=== PATIENT | male | born 1950 ===

== ENCOUNTER 2020-01-16 20:02 | Inpatient (IN) | payer MEDICARE ==
--- NOTE | 2020-01-17 00:10 | NUR ---
PT ADMIT TO UNIT FROM [facility]. HE HAS A HX OF SCHIZOPHRENIA AND HASNT BEEN TAKING HIS MEDICATIONS PRESCRIBED. SISTER, EVELYN LUX, WHO CONSENTS TO TREATMENT. HE HAS BEEN ENCOURAGED BY THE POLICE TO PURSUE PSYCHIATRIC HELP AFTER BEING FOUND WANDERING IN AND OUT OF OTHER PEOPLE'S YARD. HE IS A&OX4. HE IS COOPERATIVE WITH STAFF. HE WEIGHS 238.2 LBS. HE IS ABLE TO AMBULATE ON HIS OWN WITHOUT ASSIST. HE RELATES THAT HE WOULD LIKE TO GET HIS MEDICATIONS BACK ON TRACK. IS COOPERATIVE WITH STAFF. HE WEIGHS 238.2 LBS. HE RELATES THAT HE WOULD LIKE TO GET HIS MEDICATIONS BACK ON TRACK AND THAT HE ALSO IS HAVING AUDITORY HALLUCINATIONS. HE RELATES THAT HE IS VERY NERVOUS ABOUT NOT TAKING HIS ZYPREXA. ADMINISTERED PRN ATIVAN 0.5MG PO. WILL CONTINUE TO MONITOR.
[2020-01-17 00:32] LABS: BILIRUBIN NEGATIVE (NEGATIVE); GLUCOSE NEGATIVE (NEGATIVE); KETONE NEGATIVE (NEGATIVE); NITRITE NEGATIVE (NEGATIVE); UROBILINOGEN NORMAL (NORMAL)
[2020-01-17] MEDS ORDERED: ASCORBIC ACID500 MG PO (00:40)
[2020-01-17] MEDS ORDERED: ZYPREXA20 MG PO (00:40)
[2020-01-17] MEDS ORDERED: MAGNESIUM OXID420 MG PO (00:40)
[2020-01-17] MEDS ORDERED: COZAAR100 MG PO (00:41)
[2020-01-17] MEDS ORDERED: KENALOG 0.025%15 G2 (00:42)
[2020-01-17] MEDS ORDERED: BUSPAR5 MG (00:42)
[2020-01-17] MEDS ORDERED: AUGMENTIN 875-11 TAB (00:42)
[2020-01-17 02:33] VITALS: BP 158/101; BMI 31.4
[2020-01-17 06:10] LABS: BASOPHILS 0.4 % (0-2); HEMATOCRIT 44.9 % (42.0-54.0); HEMOGLOBIN 15.2 g/dL (13.5-17.5); IMMATURE GRANULOCYTES 0.1 % (0-5); LYMPHOCYTES 40.5 % (15-50); MCH 29.9 pg (26.0-34.0); MCHC 33.9 g/dL (31.0-37.0); MCV 88.2 fL (80.0-100.0); MONOCYTES 10.8 % (2-11); NEUTROPHILS 43.2 % (40-80); PLATELET COUNT 210 10x3/uL (130-400); RBC 5.09 10x6/uL (4.20-6.10); RDW 13.2 % (11.5-14.5); WBC 6.8 10x3/uL (4.8-10.8)
[2020-01-17 07:13] LABS: ALBUMIN 3.6 g/dL (3.4-5.0); ALKALINE PHOSPHATASE 71 U/L (30-120); ALT (SGPT) 91 U/L (10-68); BILIRUBIN - TOTAL 0.65 mg/dL (0.2-1.3); CALC OSMOLALITY 273 mosm/kg (275-300); CALCIUM 8.6 mg/dL (8.5-10.1); CARBON DIOXIDE 25.3 mmol/L (21.0-32.0); CHLORIDE - SERUM 102 mmol/L (98-107); CREATININE - SERUM 0.8 mg/dL (0.6-1.3); GLUCOSE 103 mg/dL (74-106); POTASSIUM - SERUM 3.6 mmol/L (3.5-5.1); PROTEIN - SERUM 7.5 g/dL (6.4-8.2); SODIUM 137 mmol/L (136-145); THYROID STIMULATING HORMONE 5.23 uIU/mL (0.36-3.74); UREA NITROGEN 13 mg/dL (7-18); eGFR NON AFRICAN AMERICAN > 90 mL/min (90-120)
--- NOTE | 2020-01-17 07:55 | NUR ---
The patient is calm and pleasant he has asked for a comb, toothbrush and toothpaste. He is in his room until his SARS test is read. He is ambulatory, he has not made any mention of hearing voices this am, will monitor. He has asked when what time breakfast is and when will he get medications. Provide prescribed meds as ordered. Encourage the patient to take medications. Continue POC.
[2020-01-17 09:07] VITALS: BP 146/109
[2020-01-17 11:01] VITALS: Wt 105.5 kg
--- NOTE | 2020-01-17 19:30 | NUR ---
RECEIVED IN DINING ROOM, PACING AND SOCIALIZING WITH PEERS. HE HAS NOT MADE MENTION OF HEARING VOICES TONIGHT. AWAKE, ALERT AND ORIENTED TO PERSON, PLACE AND SITUATION. ADMINISTERED PRESCRIBED MEDICATIONS, MONITOR FOR SAFETY AND NEEDS. COMPLIANT WITH MEDICATIONS. CALM AND COOPERATIVE WITH STAFF. CONTINUE POC.
[2020-01-17 21:05] VITALS: BP 133/92
--- NOTE | 2020-01-18 02:10 | NUR ---
PATIENT REQUESTED A PILL TO HELP HIM SLEEP. ATIVAN 0.5 MG PO GIVEN.
[2020-01-18 06:10] LABS: RAPID PLASMA REAGIN Non Reactive (Non Reactive)
--- NOTE | 2020-01-18 08:15 | NUR ---
PT GUARDIAN ASHUTOSH CALLED AND WANTED TO KNOW HOW HE IS DOING. WHAT THE PLAN WAS FOR HIM LEAVING. SHE WANTED TO KNOW IF HE STILL HAD THE MONEY THAT SHE SENT SO HER COULD GET A TAXI CAB WHEN HE DISCHARGED. NURSE EXPLAINED THAT HE WAS GOING TO BE FOR THE WEEKEND AND THAT WHEN IT WAS TIME FOR D/C SHE WOULD BE NOTIFIED FOR THE D/C. IF HE NEEDED A CAB IT WOULD BE ARRANGED.
[2020-01-18 13:22] VITALS: BP 133/92
[2020-01-18 14:20] VITALS: BP 141/90
--- NOTE | 2020-01-18 18:05 | NUR ---
PT PACING IN HALLWAY THIS SHIFT. PT WALKS TOUCHES THE GLASS, WALKED TO THE DOOR AND TOUCHES IT. PT CONTS THAT PATTERN FOR A LENGTH OF TIME. PT IS COOPERATIVE, CALM AND COMPLIANT WITH MEDS. REDIRECT BEHAVIOR WHEN NEEDED. PT IS HAVING AUDITORY HALLUCINATION AT TIMES. REORIENT NEEDED. WILL CONT PLAN OF CARE.
--- NOTE | 2020-01-18 18:12 | NUR ---
PT ASKED IF WE DID SHOCK THERAPY HERE OR NOT. NURSE EXPLAINED THAT WE DO NOT OFFER THAT TREATMENT HERE. HE BEGAN TO TELL HIS EXPERIENCE WITH [facility].
--- NOTE | 2020-01-18 19:57 | HP ---
PATIENT: KACEY AZEVEDO MEDICAL RECORD: [id number] ACCOUNT: [id number] LOCATION:[facility] : 48 ADMISSION DATE: 01/16/20 PCP: FRANSISCA Adames HISTORY AND PHYSICAL EXAMINATION IDENTIFYING DATA: The patient is a 69-year-old male who appears about his stated age and is admitted to the hospital on a voluntary basis referred from [facility] Emergency Department. CHIEF COMPLAINT: Paranoia. HISTORY OF PRESENT ILLNESS: The patient stated that he had not been taking his meds for the last couple of weeks because he is concerned that many people that he has seen caught of heart failure when taking these meds and that several have just fallen over in the apartment. He has also seen at the [facility] a patient just fell over in front of him, so he has not been taking his meds. The patient states that he has a history of schizophrenia and recently was having problems at the apartment complex and that he was doing things that they did not like and so they called his sister to check on him, who is his POA, who lives in [place] and she came and brought him into the Emergency Department for an evaluation. She reported that the patient had been wandering outside at all hours on to a neighbor's property uninvited and has had the police called on him. She states that he has a history of schizophrenia. Reports that the pictures in the cell phone told me to stop taking my medications. The patient presented with rambling speech. Denied that he was being told to hurt himself or anyone else. This was his second visit to the Emergency Department for abnormal thoughts and auditory hallucinations. It was reported that he wants to stop taking his antipsychotic medications. The onset was gradual. Associated symptoms include irritability and poor judgment. PAST MEDICAL HISTORY: Hypertension. PAST SURGICAL HISTORY: He had surgery to his hand and finger. PAST PSYCHIATRIC HISTORY: The patient reports that he has been in [facility] at least 3-4 times. He has been at [facility] at least twice. He has also had care at [facility]. He reports that his diagnosis has been paranoid schizophrenia. The patient reports that he was taking the Prolixin shot for greater than 30 years and feels he has been on Zyprexa, but before at least 18 years. The patient reports that he has had multiple events where he has been in a facility and eloped and would take a car and return back to [place]. The patient reports that he was never charged with anything as his family would return the vehicles. REVIEW OF SYSTEMS: The patient is a poor historian. Denies anything. Trauma, the patient denies any history of physical, emotional, or sexual trauma. ALLERGIES: The patient has no known allergies. MEDICATIONS: Current medications include magnesium oxide 400 mg, olanzapine 20 mg daily, buspirone 5 mg t.i.d., and losartan 100 mg daily. SOCIAL HISTORY: The patient is single. His sister who resides in [place] is his POA. He states he has never been , did date a girl in high school. He has no children. 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 The patient states he did graduate high school. The patient denies any history of drug or alcohol abuse or smoking. His strengths are his ability to communicate his needs and his weakness is his poor psychosocial support and his history of serious mental illness. DIAGNOSES: AXIS I: Schizophrenia, anxiety. Differential diagnosis: Dementia. AXIS II: None. AXIS III: Hypertension. AXIS IV: Moderate. AXIS V: Global assessment of functioning is 30. PLAN: At this time, the plan is to be admitted to the behavioral health unit secondary to bizarre behavior associated with severe schizophrenia. He will have a comprehensive evaluation for mood, thought, and cognition. He will be treated with both mood and thought stabilizing medications and potentially memory enhancing medications. His long-term prognosis is guarded. The patient did agree to start taking Zyprexa again at a low dose of 5 mg p.o. daily. Dictated By: Twila Junior APN I have interviewed/examined the above patient and agree with these documented findings. TRANSINT:[id number] Voice Confirmation ID: [id number] DOCUMENT ID: [id number] Dictated By: TWILA JUNIOR I have interviewed/examined the above patient and agree with these documented findings. MIRIAM JOHNSON MD at 1957 at 0919 CC: [id number] DICTATION DATE: 01/17/20 1645 LINING FELLER BLINDSTITCH: 01/17/202221 ADM IN [facility] [address] [facility]901
--- NOTE | 2020-01-18 23:20 | NUR ---
RECEIVED PATIENT IN DINING AREA TALKING WITH TWO OTHER RESIDENTS, HE IS BIZARRE AND A LITTLE GUARDED. HE IS COMPLIANT WITH MEDS. HE CAN MAKE ALL NEEDS KNOWN. WILL FOLLOW POC
[2020-01-19 08:53] VITALS: BP 169/92
--- NOTE | 2020-01-19 15:01 | NUR ---
Pt sitting at dining room table with peers. Calm and cooperative with assessment. Prescribed meds provided as ordered. Med compliant. Pt is guarded at this time. No other behaviors noted at this time. Will cpoc.
--- NOTE | 2020-01-19 22:20 | NUR ---
B) Patient is alert and oriented to person, place and time, calm and cooperative I) Administered scheduled medications as ordered, monitored for safety R) Mediation compliant, follows unit miliue P) Continue plan of care.
[2020-01-20 09:08] VITALS: BP 142/90
--- NOTE | 2020-01-20 17:08 | NUR ---
PT IS STTING AT DINING ROOM TABLE WITH PEERS SOCIALIZING. ASSESSMENT COMPLETED. PRESCRIBED MEDS PROVIDED. MED COMPLIANT. WILL CPOC.
--- NOTE | 2020-01-20 19:31 | NUR ---
RECEIVED IN DINING ROOM AREA. SITTING IN A CHAIR WITH PEERS AT HIS SIDE. CALM AND COOPERATIVE WITH CARE AND ASSESSMENT. ENCOURAGE TO EXPRESS NEEDS. REDIRECT AND REOREINT NEEDED. CONTINUES TO SIT CALMLY IN DAYROOM. CONTINUE PLAN OF CARE.
[2020-01-20 20:10] VITALS: BP 155/84
--- NOTE | 2020-01-21 08:22 | PN ---
PATIENT:KACEY AZEVEDO MEDICAL RECORD: [id number] LOCATION:[facility]112 ADMISSION DATE: 01/16/20 PROGRESS NOTE DATE OF SERVICE: 01/20/2020 SUBJECTIVE: The patient's case was discussed with staff. He has no new complaint. OBJECTIVE: The patient denies intent to harm himself or others. He tolerates his medicines well. ASSESSMENT: Schizophrenia. PLAN: Current medicines have been reviewed and will be maintained. His long-term prognosis is guarded. He is tolerating his current medications well. TRANSINT:[id number] Voice Confirmation ID: [id number] DOCUMENT ID: [id number] MIRIAM JOHNSON MD at 0822 CC: [id number] DICTATION DATE: 01/20/20 173 BUTTON BUTTONHOLE MARKER: 01/21/20 0133 ADM IN [facility] [address] [place] [address]
[2020-01-21 10:05] VITALS: BP 136/92
--- NOTE | 2020-01-21 11:18 | NUR ---
Nutrition Follow-up: Diet: Regular PO intake: ~93% average x last 9 meals Last BM: 01/18/20. Wt: 238.2# (01/17/20) Meds reviewed. No new labs. Recommend continue current diet. RD following.
--- NOTE | 2020-01-21 15:43 | NUR ---
PT SITTING IN CHAIR AT THIS TIME. PT STATED TO NURSE IF HE COULD HAVE SOME CINNAMON WITH HIS ZYPREXA IT STOPS FROM HIM FROM GETTING SUGAR DIABETES. NURSE ASKED HIM WHAT HE MEANT?" HE STATED THAT HE WANTED IT TO NOT GET SUGAR." NURSE TOLD PT SHE COULD TALK TO THE DOCTOR. PT IS ORIENT TO PERSON, PLACE AND TIME. PT IS CONFUSED ABOUT SITUATION. PT IS CALM AND COOPERATIVE WITH STAFF. PT IS COMPLIANT WITH MEDS, VITALS AND ASSESSMENTS. PT CAN MAKE NEEDS KNOWN. AMBULATES. WILL CONT PLAN OF CARE.
--- NOTE | 2020-01-21 19:41 | NUR ---
RECEIVED IN DAYROOM. SITTING IN A CHAIR WITH PEERS AT HIS SIDE. CALM AND COOPERATIVE WITH CARE AND ASSESSMENT. ENCOURAGE TO EXPRESS NEEDS. REDIRECT AND REORIENT NEEDED. CONTINUES TO SIT CALMLY IN DAYROOM. CONTINUE PLAN OF CARE.
[2020-01-21 19:52] VITALS: BP 172/97
[2020-01-22 08:36] VITALS: BP 152/99
--- NOTE | 2020-01-22 09:07 | PN ---
PATIENT:KACEY AZEVEDO MEDICAL RECORD: [id number] LOCATION:[facility] ADMISSION DATE: 01/16/20 PROGRESS NOTE DATE OF SERVICE: 01/21/2020 SUBJECTIVE: The patient's case was discussed with staff. He has no new complaint. OBJECTIVE: The patient is in good behavioral control. He has poor insight about his situation. ASSESSMENT: Schizophrenia. PLAN: The patient has not been aggressive today. He has made some statements that are delusional, but I think his condition has improved now that he is back on his medications. TRANSINT:[id number] Voice Confirmation ID: [id number] DOCUMENT ID: [id number] MIRIAM JOHNSON MD at 0907 CC: [id number] DICTATION DATE: 01/21/20 1615 SR. PRICING ANALYST: 01/22/20 0111 ADM IN [facility] [address] [place] [address]
--- NOTE | 2020-01-22 12:26 | NUR ---
SW AUDITED THE CHART AND BIO WAS NOT THERE. BIO WAS COMPLETED ON 01/17. SW REENTERED ASSESSMENT.
--- NOTE | 2020-01-22 14:42 | NUR ---
Nutrition Follow-up: Diet: Regular PO intake: ~93% average x last 9 meals Last BM: 01/21/20- per notes. Wt: 238.2# (01/17/20) Meds and labs reviewed Recommend continue current diet. RD following.
[2020-01-22 20:27] VITALS: BP 189/89
--- NOTE | 2020-01-22 20:34 | NUR ---
RECEIVED PATIENT IN DINING ROOM, SITTING TO HIMSELF, HE IS ALERT AND ORIENTED TO PERSON, PLACE, TIME AND SITUATION. COMPLIANT WITH MEDS. ABLE TO STATE ALL OF HIS NEEDS AND CONCERNS. WILL FOLLOW POC
[2020-01-23 11:19] VITALS: BP 145/91
--- NOTE | 2020-01-23 13:19 | PN ---
PATIENT:KACEY AZEVEDO MEDICAL RECORD: [id number] LOCATION:[facility]112 ADMISSION DATE: 01/16/20 PROGRESS NOTE DATE OF SERVICE: 01/22/2020 SUBJECTIVE: The patient's case was discussed with staff. He has no new complaint. OBJECTIVE: The patient denies intent to harm himself or others. He has clear evidence of cognitive impairment. He says he does not want to take his medicine because he read the instructions and they told him about the dangers. When he says instructions, I am sure he is talking about the package insert. I have talked to him about the relative risk and benefit of any kind of medicine. I talked to him fairly extensively about this, but I do not believe he really is accepting my explanation. ASSESSMENT: 1. Schizophrenia. 2. Dementia. PLAN: The patient is only taking half of his medication for psychotic symptoms he was taking as an outpatient. I was wanting to speak with him about increasing that dose today but given the above circumstances, I did not. Also, he was asking me to drop the dose by 75% and again, I told him I did not think that was a good idea. NTS:[id number] Voice Confirmation ID: [id number] DOCUMENT ID: [id number] MIRIAM JOHNSON MD at 1319 CC: [id number] DICTATION DATE: 01/22/20 1640 MERGERS AND ACQUISITIONS CONSULTANT: 01/22/20 2343 ADM IN [facility] [address] [place] [address]
--- NOTE | 2020-01-23 17:18 | NUR ---
ORIENTED TO SELF WITH CONFUSION.COMPLIANT WITH STAFF AND MEDS.VISITS WITH PEERS.WILL CONTINUE WITH CURRENT PLAN OF CARE,MONITOR FOR CHANGES AND SAFETY.
[2020-01-23 20:09] VITALS: BP 167/96
--- NOTE | 2020-01-24 06:50 | NUR ---
RESTED QUIETLY THROUGH THE NIGHT, NO PRN'S REQUIRED, COMPLIANT WITH MEDS.
--- NOTE | 2020-01-24 10:46 | NUR ---
The patient is pleasant and calm, he ambulates independently. He has not shown any aggression today. He has not shown any hallucinations. Provide prescribed meds. The patient is compliant with meds. Continue POC.
--- NOTE | 2020-01-24 12:57 | PN ---
PATIENT:KACEY AZEVEDO MEDICAL RECORD: [id number] LOCATION:[facility] ADMISSION DATE: 01/16/20 PROGRESS NOTE DATE OF SERVICE: 01/23/2020 SUBJECTIVE: The patient's case was discussed with staff. He has no new complaint. OBJECTIVE: The patient denies intent to harm himself or others. He is tolerating his medicines well. ASSESSMENT: 1. Schizophrenia. 2. Mild dementia. PLAN: Supportive and educational interventions were made. The patient will be maintained on current medicines. TRANSINT:[id number] Voice Confirmation ID: [id number] DOCUMENT ID: [id number] MIRIAM JOHNSON MD at 1257 CC: [id number] DICTATION DATE: 01/23/201705 AUTOMOTIVE PAINT TECHNICIAN: 01/24/20 0216 ADM IN [place] [id number] [place] [address]
[2020-01-24 16:17] VITALS: BP 148/92
--- NOTE | 2020-01-24 17:46 | NUR ---
The patient is plugging up his ears and he keeps saying it is too loud today. Unsure if he is attending to his voices or if he is getting upset because it is loud with patient's talking and TV blaring. Will monitor his behavior.
[2020-01-24 19:57] VITALS: BP 162/94
--- NOTE | 2020-01-24 21:25 | NUR ---
B.) PT IS ALERT AND ORIENTED X4. HE IS CALM AND COOPERATIVE. HE IS ABLE TO AMBULATE ON HIS OWN. HE IS ATTENDING TO AUDITORY HALLUCINATIONS. HE RELATES THAT THERE ARE SUBLIMINAL MESSAGES IN THE COMMERCIALS ON THE TV. HE IS OBSERVED COVERING HIS EARS. I.) PROVIDED PM MEDICATION PRESCRIBED. R.) COMPLIANT WITH HS MEDICATION. P.) WILL CONTINUE TO MONITOR.
[2020-01-25 10:10] VITALS: BP 149/96
--- NOTE | 2020-01-25 12:52 | NUR ---
The patient is awake, he is pleasant and calm. He continues to hear voices he says they are subliminal messages he hears from the commercials that tell him to buy things. He ambulates independently. Provide prescribed meds. The patient is compliant with meds and he spoke to Twila Junior APN about his medications today. Continue POC.
[2020-01-25 20:00] VITALS: BP 159/87
--- NOTE | 2020-01-25 21:58 | NUR ---
B.) PT IS ALERT AND ORIENTED X4. HE RELATES THAT HE IS CONCERNED THAT HE TAKES 5 MG OF AMLODIPINE AND HE HAS ONLY BEEN GETTING 2.5 HERE. HE SAYS HE THINKS HE WOULD BETTER CONTROL HIS BLOOD PRESSURE WITH THE 5 MG. HE IS ABLE TO AMBULATE ON HIS OWN WITHOUT ASSIST. I.) PROVIDED PM MEDICATIONS PRESCRIBED. REDIRECT NEEDED. R.) COMPLIANT WITH ALL MEDICATIONS. EASY TO REDIRECT. P.) WILL CONTINUE TO MONITOR.
[2020-01-26 09:09] VITALS: BP 138/93
--- NOTE | 2020-01-26 11:01 | NUR ---
RECEIVED IN HALLWAY OUTSIDE OF NURSES STATION. CALM AND COOPERATIVE WITH CARE AND ASSESSMENT. COMPLIANT WITH MORNING MEDICATIONS. ISOLATES HIMSELF FROM OTHERS AND DOESN'T SOCIALIZE. REDIRECT AND REORIENT NEEDED. SITTING IN GROUP AT THIS TIME. CONTINUE PLAN OF CARE.
--- NOTE | 2020-01-26 19:49 | NUR ---
RECEIVED IN HALLWAY OUTSIDE OF DINING AREA. PACING, CALM AND COOPERATIVE WITH CARE AND ASSESSMENT. ENCOURAGE TO EXPRESS NEEDS. REDIRECT AND REORIENT NEEDED. CONTINUES TO SPACE IN HALLWAY. CONTINUE PLAN OF CARE.
[2020-01-26 20:00] VITALS: BP 151/85
[2020-01-27 08:55] VITALS: BP 122/82
--- NOTE | 2020-01-27 12:00 | NUR ---
RECEIVED IN HALLWAY OUTSIDE OF NURSES STATION. CALM AND COOPERATIVE WITH CARE AND ASSESSMENT. ISOLATES SELF FROM OTHERS. COMPLIANT WITH MEDICATIONS. REDIRECT AND REORIENT NEEDED. EATING AT THIS TIME. CONTINUE PLAN OF CARE.
[2020-01-27] MEDS ORDERED: DESERYL PO (15:26)
[2020-01-27] MEDS ORDERED: NORVASC2.5 MG PO (15:26)
[2020-01-27] MEDS ORDERED: ZYPREXA5 MG PO (15:26)
--- NOTE | 2020-01-27 19:34 | NUR ---
RECEIVED IN DAYROOM. SITTING IN A CHAIR WITH PEERS AT HIS SIDE. CALM AND COOPERATIVE WITH CARE AND ASSESSMENT. ENCOURAGE TO EXPRESS NEEDS. CONTINUES TO SIT CALMLY IN DAYROOM. CONTINUE PLAN OF CARE.
[2020-01-27 20:06] VITALS: BP 156/89
[2020-01-27 20:12] VITALS: BP 156/89
[2020-01-28 09:32] VITALS: BP 151/90
--- NOTE | 2020-01-28 09:50 | PN ---
PATIENT:KACEY AZEVEDO MEDICAL RECORD: [id number] LOCATION:[facility] ADMISSION DATE: 01/16/20 PROGRESS NOTE DATE OF SERVICE: 01/27/2020 SUBJECTIVE: The patient's case was discussed with staff. He has no new complaint. OBJECTIVE: The patient denies that he would seek to harm himself or others. He has no active psychotic symptoms and no medication side effects. He is aware of the COVID infection and is very much afraid he is going to get it. That is probably on some level not unreasonable, but he had the delusion when he came in, that his psych meds might cause that. After I explained that that was not the case, he was concerned that they might cause all sorts of problems. Apparently, he had gotten hold of the package insert, which is of course fine and he is entitled to have, but he was not able to fully appreciate that all medications have relative risk and benefit. ASSESSMENT: Schizophrenia. PLAN: The patient is not psychotic. He has no evidence of dangerousness. He is fine to go home tomorrow. I do think that the sister is thinking along the right lines of looking for a long-term placement for him after she is no longer with us or can no longer assist him. She is about 8 years older than he is. She is going to help him look for an assisted living center and in the interim, he is going to go to day treatment at the [facility]. I think this is a good plan. The outcome will be largely contingent upon him continuing to take his medications, which I have some concerns that he may not. TRANSINT:[id number] Voice Confirmation ID: [id number] DOCUMENT ID: [id number] MIRIAM JOHNSON MD at 0950 CC: [id number] DICTATION DATE: 01/27/20 1529 GRADUATE TEACHING ASSOCIATE: 01/27/20 1428 ADM IN [place] [id number] [place] [address]
--- NOTE | 2020-01-28 13:37 | NUR ---
RECEIVED IN HALLWAY OUTSIDE OF NURSES STATION. CALM AND COOPERATIVE WITH CARE AND ASSESSMENT. NO BEHAVIORS. LOOKING FORWARD TO DISCHARGING. REDIRECT AND REORIENT NEEDED. IN GROUP AT THIS TIME. CONTINUE PLAN OF CARE.
--- NOTE | 2020-01-28 14:38 | NUR ---
PT DISCHARGED HOME. PT LEFT VIA TAXI. ALL BELONGINGS AND PAPERWORK SENT WITH PT AT TIME OF DISCHARGE. NO S/SX OF DISTRESS NOTED.
--- NOTE | 2020-01-29 14:35 | PN ---
PATIENT:KACEY AZEVEDO MEDICAL RECORD: [id number] LOCATION:[facility] ADMISSION DATE: 01/16/20 PROGRESS NOTE DATE OF SERVICE: 01/28/2020 SUBJECTIVE: The patient's case was discussed with staff. He has no new complaint. OBJECTIVE: The patient is in good behavioral control with poor insight about his situation. He has no evidence of acute dangerousness. ASSESSMENT: 1. Schizophrenia. 2. Mild dementia. PLAN: The patient will be transitioned out of the hospital today. Followup will be with the [facility]. TRANSINT:[id number] Voice Confirmation ID: [id number] DOCUMENT ID: [id number] MIRIAM JOHNSON MD at 1435 CC: [id number] DICTATION DATE: 01/28/20 1526 PHOTOCOPYING EQUIPMENT REPAIRER: 01/28/20 2345 DIS IN 01/28/20 [place] [id number] [place] [address]
--- NOTE | 2020-01-30 12:16 | DS ---
PATIENT:KACEY AZEVEDO :46 MEDICAL RECORD: [id number] DISCHARGE SUMMARY ADMISSION DATE: 01/16/20 DISCHARGE DATE: 01/28/20 IDENTIFYING DATA: The patient is 69 years old and he was admitted to the hospital on a voluntary basis. CHIEF COMPLAINT: Paranoia. HISTORY OF PRESENT ILLNESS: The patient had initially presented to the Emergency Room at [facility]. He had not been taking his medicines for a couple of weeks. He had a mistaken belief that the medications were going to hurt him. Apparently, he had read some package inserts and became paranoid about the medications. He had some bizarre delusions regarding family and the community. HOSPITAL COURSE: The patient was admitted to the hospital and restarted on medications. With some difficulty, he was able to understand the basic risk-benefit model of medication use and he was compliant with medications and showed organization in his thought processes. This patient has been mentally ill for almost patient has been mentally ill for 5 decades. He has had a great deal of inpatient and outpatient treatment. He attends a day treatment program in [place], but he likes in [place]. He is wanting to transfer his care to small group therapy. I think he is very appropriate for the program. Also, his sister who is 7 or 8 years older than him is his primary caregiver and given her advanced age, it is obvious that she is not going to be able to do this much longer. The patient is interested in shelter or even apartment living if possible. I think he would fit the environment there very well. DISCHARGE DIAGNOSES: AXIS I: a. Schizophrenia, chronic, undifferentiated. b. Mild cognitive impairment. AXIS II: None. AXIS III: Hypertension. AXIS IV: Moderate stressors. AXIS V: Global assessment of functioning is 40. PLAN: At the time of discharge, the patient had no evidence of acute or direct dangerousness to himself or others. He was tolerating his medications well. Followup is to be with [facility]. As mentioned above, he has been given referral information for small group therapy. TRANSINT:[id number] Voice Confirmation ID: [id number] DOCUMENT ID: [id number] MIRIAM JOHNSON MD at 1216 CC: [id number] DICTATION DATE: 01/29/20 6174 FERRY TERMINAL AGENT: 01/30/20 0222 DIS IN 01/28/20 [facility] [address], [facility]
== END 2020-01-28 14:38 | disposition home or self-care (01) | DRG 885 ==
LOC: D.PSYCH 20:02
PROVIDERS: ADMIT Psychiatry & Neurology Psychiatry; ATTEND Psychiatry & Neurology Psychiatry
DX: F20.9 Schizophrenia, unspecified (principal); F41.9 Anxiety disorder, unspecified; F03.90 Unspecified dementia, unspecified severity, without behavioral disturbance, psychotic disturbance, mood disturbance, and anxiety; I10 Essential (primary) hypertension; K59.00 Constipation, unspecified; E11.9 Type 2 diabetes mellitus without complications